=== PATIENT | female | born 1965 | race Hispanic/Latino ===

== ENCOUNTER 2017-05-27 00:17 | Emergency (ER) | payer BC ==
[2017-05-27 01:10] VITALS: BP 137/78; PULSE 80; RESP 16; TEMP 98.2; O2SAT 100
[2017-05-27] MEDS ORDERED: Sodium Chloride 0.9% 1,000 ML IV SCH (02:15)
[2017-05-27 02:55] LABS: BASO % 0.3 % (0.0-2.0); EOS % 0.3 % (0.0-4.0); HEMOGLOBIN 12.4 g/dL (12.0-16.0); LYMPH # 0.9 K/uL (1.0-4.3); LYMPH % 9.3 % (20.0-40.0); MEAN CELL VOLUME 83.9 fl (81.0-99.0); MEAN CORPUSCULAR HEMOGLOBIN 27.6 pg (27.0-31.0); MEAN CORPUSCULAR HGB CONC 32.9 g/dL (33.0-37.0); MEAN PLATELET VOLUME 9.3 fl (7.2-11.7); MONO # 0.3 K/uL (0.0-0.8); NEUT # 8.7 K/uL (1.8-7.0); NEUT % 87.1 % (50.0-75.0); PLATELET COUNT 202 K/uL (130-400); RBC 4.52 Mil/uL (3.80-5.20); RED CELL DISTRIBUTION WIDTH 13.8 % (11.5-14.5)
[2017-05-27 02:59] LABS: ALB/GLOB RATIO 1.3 (1.0-2.1); ALBUMIN 4.4 g/dL (3.5-5.0); ALT/SGPT 31 U/L (9-52); AST/SGOT 28 U/L (14-36); BLOOD UREA NITROGEN 15 mg/dl (7-17); CALCIUM 9.2 mg/dL (8.4-10.2); GFR AFRICAN-AMERICAN > 60; GFR NON-AFRICAN AMERICAN > 60; LIPASE 89 U/L (23-300); SQUAMOUS EPITHIAL 2 /hpf (0-5); URINE BACTERIA RARE (<OCC); URINE BILIRUBIN NEGATIVE (NEGATIVE); URINE BLOOD MODERATE (NEGATIVE); URINE CLARITY SLIGHTY-CLOUDY (Clear); URINE COLOR YELLOW (YELLOW); URINE GLUCOSE (UA) NEG (Normal); URINE LEUKOCYTE ESTERASE TRACE Leu/uL (Negative); URINE NITRATE NEGATIVE (NEGATIVE); URINE PROTEIN 30 mg/dL (NEGATIVE); URINE UROBILINOGEN 0.2-1.0 mg/dL (0.2-1.0)
--- NOTE | 2017-05-27 04:12 | ED PDOC ---
HPI: Abdomen Time Seen by Provider: 05/27/17 01:22 Chief Complaint (Nursing): Abdominal Pain Chief Complaint (Provider): Abdominal Pain History Per: Patient History/Exam Limitations: no limitations Onset/Duration Of Symptoms: Mins (x40 mins), Persistent Outside of [place] travel?: No Current Symptoms Are (Timing): Still Present Location Of Pain/Discomfort: Epigastric Associated Symptoms: Nausea. denies: Fever, Vomiting Additional Complaint(s): 52 year old female presents to ED with complaints of epigastric pain x40 minutes [employer] and has no past medical history. Notes that pain is non-radiating, constant, and gaseous in nature. (+) nausea, (-) vomiting, fever, melena, diarrhea, or hematochezia. Confirms past surgical abdominal history: . PCP: Dr. Moulton Past Medical History Reviewed: Historical Data, Nursing Documentation, Vital Signs Vital Signs: Last Vital Signs Temp 98.2 F 05/27/17 01:06 Pulse 80 05/27/17 01:06 Resp 16 05/27/17 01:06 BP 137/78 05/27/17 01:06 Pulse Ox 100 05/27/17 04:26 - Medical History PMH: No Chronic Diseases - Surgical History Surgical History: Denies: No Surg Hx - Family History Family History: States: Unknown Family Hx - Living Arrangements Living Arrangements: With Family - Social History Drugs: Denies - Home Medications Home Medications: Ambulatory Orders Medication Instructions Recorded Esomeprazole Magnesium [Nexium] 40 mg PO DAILY #30 ecc 05/27/17 Nitrofurantoin Macrocrystals 100 mg PO BID #14 cap 05/27/17 [Macrobid] - Allergies Allergies/Adverse Reactions: Allergies Allergy/AdvReac Type Severity Reaction Status Date / Time No Known Allergies Allergy Verified 05/27/17 01:10 Review of Systems ROS Statement: Except As Marked, All Systems Reviewed And Found Negative Constitutional: Negative for: Fever Gastrointestinal: Positive for: Nausea. Negative for: Vomiting, Diarrhea, Melena, Hematochezia Physical Exam - Reviewed Nursing Documentation Reviewed: Yes Vital Signs Reviewed: Yes - Physical Exam Comments: GENERAL APPEARANCE : Patient is awake, alert, oriented x3, in mild to moderate painful distress. SKIN: Warm, dry; (-) cyanosis. EYES: (-) conjunctival pallor, (-) scleral icterus. ENMT: Mucous membranes moist. NECK: (-) tenderness, (-) stiffness, (-) lymphadenopathy. CHEST AND RESPIRATORY: (-) rales, (-) rhonchi, (-) wheezes; breath sounds equal bilaterally. HEART AND CARDIOVASCULAR: (-) irregularity; (-) murmur, (-) gallop. ABDOMEN AND GI: (-) distention. Bowel sounds active; (+) RUQ/epigastric tenderness, (-) guarding, (-) rebound, (-) palpable masses, (-) CVA tenderness. (-) Guevara's sign EXTREMITIES: (-) deformity, (-) edema, (+) distal pulses. NEURO AND PSYCH: Mental status as above; (-) focal findings. - Laboratory Results Result Diagrams: 05/27/17 02:48 05/27/17 02:48 - ECG O2 Sat by Pulse Oximetry: 100 (RA) Pulse Ox Interpretation: Normal Medical Decision Making Medical Decision Making: Plan : - Labs - UA - IV - Pepcid IV - NS bolus - US abdomen US abdomen : FINDINGS: Liver: Unremarkable. No mass. No intrahepatic bile duct dilation. Gallbladder: Unremarkable. No gallstones. Common bile duct: Unremarkable as visualized. No stones. No dilation. Pancreas: Unremarkable as visualized. Kidneys: Unremarkable. No stones. No solid mass. No hydronephrosis. Spleen: Unremarkable. No splenomegaly. Aorta: Unremarkable. No aneurysm. Inferior vena cava: Unremarkable. IMPRESSION: Normal abdominal ultrasound. On re-evaluation, patient reports improvement of symptoms, denies any nausea. On exam, patient remains AAOx3, in no acute distress, abdomen soft, non-tender. Lab results reviewed : UA shows (+) UTI, rest of the labs are wnl. Diagnostic results d/w the patient in great detail. Diagnosis of dyspepsia and UTI d/w the patient. Based on history, exam and diagnostic results, plan will be for outpatient follow up. Patient instructed to follow-up with pmd in 1-2 days without fail. Advised to take medication as prescribed. Return to the emergency room at any time for any new or worsening symptoms. Patient states she fully agrees with and understands discharge instructions. States that she agrees with the plan and disposition. Verbalized and repeated discharge instructions and plan. I have given the patient opportunity to ask any additional questions. Scribe Attestation: Documented by Nathalie Rollins acting as a scribe for Trudy Bell PA-C. MD [place] Attestation: All medical record entries made by the Scribe were at my direction and personally dictated by me. I have reviewed the chart and agree that the record accurately reflects my personal performance of the history, physical exam, medical decision making, and the department course for this patient. I have also personally directed, reviewed, and agree with the discharge instructions and disposition. Disposition - Clinical Impression Clinical Impression: Dyspepsia, Abdominal pain, UTI (urinary tract infection) - Patient ED Disposition Is Patient to be Admitted: No Counseled Patient/Family Regarding: Studies Performed, Diagnosis, Need For Followup, Rx Given - Disposition Referrals: Denia Moulton MD [Primary Care Provider] - Disposition: Routine/Home Disposition Time: 04:15 Condition: IMPROVED Additional Instructions: Thank you for letting us take care of you today. You were treated for abdominal pain, dyspepsia, UTI. The emergency medical care you received today was directed at your acute symptoms. If you were prescribed any medication, please fill it and take as directed. It may take several days for your symptoms to resolve. Return to the Emergency Department if your symptoms worsen, do not improve, or if you have any other problems. Please contact your doctor in 2 days for re-evaluation and follow up. Bring any paperwork you were given at discharge with you along with any medications you are taking to your follow up visit. Our treatment cannot replace ongoing medical care by a primary care provider (PCP) outside of the emergency department. Thank you for allowing the [facility] team to be part of your care today. If you had a urine culture test done : We will call you regarding any positive results Prescriptions: Esomeprazole Magnesium [Nexium] 40 mg PO DAILY #30 ecc Nitrofurantoin Macrocrystals [Macrobid] 100 mg PO BID #14 cap Instructions: Urinary Tract Infection in Women (ED), Chronic Indigestion (ED) Forms: [employer] (French), [facility] ED School/Work Excuse
[2017-05-27] MEDS ORDERED: Alum-Mag Hydrox-Simethicone Susp (30 mL) PO STA (04:31)
[2017-05-27] MEDS ORDERED: Atrop/Hyos/Scop/PhenoB Elixir PO STA (04:31)
[2017-05-27] MEDS ORDERED: Alum-Mag Hydrox-Simethicone Susp (30 mL) ONE (04:52)
[2017-05-27 07:44] LABS: ANISOCYTOSIS SLIGHT; BANDS 2 % (0-2); BASOPHIL 1 % (0-2); HYPOCHROMIC SLIGHT; LYMPHOCYTE 11 % (20-50); MONOCYTE 4 % (0-10); NEUTROPHIL 82 % (42-75); PLATELET ESTIMATE NORMAL (NORMAL); STOMATOCYTES SLIGHT; TOTAL CELLS COUNTED 100
--- NOTE | 2017-05-27 09:46 | US ---
HISTORY: epigastric pain, r/o biliary colic COMPARISON: None. TECHNIQUE: Sonographic evaluation of the abdomen. FINDINGS: LIVER: Measures 13.6 cm. Normal echogenicity of the liver parenchyma. No mass. No intrahepatic bile duct dilatation. GALLBLADDER: Unremarkable. No gallstones. COMMON BILE DUCT: Measures 3 mm. No stones. No dilatation. PANCREAS: Unremarkable as visualized. No mass. No ductal dilatation. RIGHT KIDNEY: Measures 11.4 x 4.6 x 5.8cm. Normal echogenicity. No calculus, mass, or hydronephrosis. LEFT KIDNEY: Measures 11.8 x 4.7 x 5.4cm. Normal echogenicity. No calculus, mass, or hydronephrosis. SPLEEN: Normal in size and contour. No mass. AORTA: No aneurysmal dilatation. IVC: Unremarkable. OTHER FINDINGS: None. IMPRESSION: Unremarkable abdominal sonogram.
== END 2017-05-27 05:20 | disposition home or self-care (01) ==
LOC: H.ER 00:17
DX: N39.0 Urinary tract infection, site not specified (principal); K30 Functional dyspepsia
CPT/HCPCS: 76700; 80053; 81003; 81025; 83690; 85025; 87086; 87206; 96374; 99283; J7040

== ENCOUNTER 2017-08-23 00:56 | Emergency (ER) | payer BC ==
[2017-08-23 01:44] VITALS: BMI 25.0
[2017-08-23 01:46] VITALS: BP 115/61; PULSE 79; RESP 18; TEMP 98.2; O2SAT 98
--- NOTE | 2017-08-23 03:28 | ED PDOC ---
HPI: Allergic Reaction Time Seen by Provider: 08/23/17 01:00 Chief Complaint (Nursing): Allergic Reaction Chief Complaint (Provider): Allergics Reaction History Per: Patient History/Exam Limitations: no limitations Onset/Duration Of Symptoms: Days (x 1) Additional Complaint(s): 52 years old female presents to the ED complaining of facial irritation, swelling around her eyes and rash on her arms onset 1 day. Patient admits using a new facial wash. She reports taking Benadryl with no relief. Patient denies any fever, difficulty breathing, neck pain, cough or tongue swelling. PMD: Denia Moulton Past Medical History Reviewed: Historical Data, Nursing Documentation, Vital Signs Vital Signs: Last Vital Signs Temp 98.2 F 08/23/17 01:43 Pulse 79 08/23/17 01:43 Resp 18 08/23/17 01:43 BP 115/61 08/23/17 01:43 Pulse Ox 98 08/23/17 01:43 - Medical History PMH: No Chronic Diseases - Surgical History Surgical History: - Family History Family History: States: Unknown Family Hx - Social History Current smoker - smoking cessation education provided: No Alcohol: None Drugs: Denies - Home Medications Home Medications: Ambulatory Orders Medication Instructions Recorded Esomeprazole Magnesium [Nexium] 40 mg PO DAILY #30 ecc 05/27/17 Nitrofurantoin Macrocrystals 100 mg PO BID #14 cap 05/27/17 [Macrobid] predniSONE [Prednisone] 40 mg PO DAILY #8 tab 08/23/17 - Allergies Allergies/Adverse Reactions: Allergies Allergy/AdvReac Type Severity Reaction Status Date / Time No Known Allergies Allergy Verified 08/23/17 01:43 Review of Systems ROS Statement: Except As Marked, All Systems Reviewed And Found Negative Constitutional: Negative for: Fever ENT: Negative for: Mouth Swelling (tongue swelling) Respiratory: Negative for: Cough, Shortness of Breath Musculoskeletal: Negative for: Neck Pain Skin: Positive for: Rash (on arms) Physical Exam - Reviewed Nursing Documentation Reviewed: Yes Vital Signs Reviewed: Yes - Physical Exam Appears: Positive for: Non-toxic, No Acute Distress (pt breathing comfortably. no tachypena) Head Exam: Positive for: ATRAUMATIC, NORMOCEPHALIC Skin: Positive for: Normal Color, Warm, Dry Eye Exam: Positive for: Periorbital swelling (both eyes) ENT: Positive for: Pharynx Is (Normal. No swelling) Neck: Positive for: Normal, Painless ROM, Supple Cardiovascular/Chest: Positive for: Regular Rate, Rhythm. Negative for: Murmur Respiratory: Positive for: Normal Breath Sounds, Other (breathing comfortably, no swollen tongue). Negative for: Rales, Rhonchi, Stridor, Respiratory Distress Gastrointestinal/Abdominal: Positive for: Normal Exam, Soft. Negative for: Tenderness Extremity: Positive for: Normal ROM Neurologic/Psych: Positive for: Alert, Oriented - ECG O2 Sat by Pulse Oximetry: 98 (RA) Pulse Ox Interpretation: Normal Disposition - Clinical Impression Clinical Impression: Allergic reaction - Patient ED Disposition Is Patient to be Admitted: No Counseled Patient/Family Regarding: Studies Performed, Diagnosis, Need For Followup - Disposition Referrals: [facility] [Outside] [facility] [Outside] Denia Moulton MD [Primary Care Provider] - Disposition: Routine/Home Disposition Time: 03:15 Condition: IMPROVED Additional Instructions: follow up with your primary doctor in 1-2 days take benadryl as needed return to the ED with any worsening or concerning symptoms Prescriptions: predniSONE [Prednisone] 40 mg PO DAILY #8 tab Instructions: Skin Rash (DC) Forms: [employer] ([place]) Medical Decision Making - Medication Orders Current Medication Orders: Discontinued Medications Diphenhydramine HCl (Benadryl) 25 mg PO ONCE ONE Stop: 08/23/17 02:30 Last Admin: 08/23/17 02:52 Dose: 25 mg Prednisone (Prednisone Tab) 40 mg PO STAT STA Stop: 08/23/17 02:31 Last Admin: 08/23/17 02:52 Dose: 40 mg 08/23/17 03:35 0340 pt reeval. no respiratory symptoms. pt breathing comfortably. swelling slightly improved. Upon provider's evaluation, patient reports improvement in symptoms and is stable for discharge. 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 Scribe Attestation: Documented by Kim Cheng, acting as a scribe for Jesus Manuel Hogue MD Provider Scribe Attestation: All medical record entries made by the Scribe were at my direction and personally dictated by me. I have reviewed the chart and agree that the record accurately reflects my personal performance of the history, physical exam, medical decision making, and the department course for this patient. I have also personally directed, reviewed, and agree with the discharge instructions and disposition. 08/23/17 03:40 08/24/17 14:43 08/24/17 14:47
== END 2017-08-23 03:54 | disposition home or self-care (01) ==
LOC: H.ER 00:56
DX: T78.40XA Allergy, unspecified, initial encounter (principal)